=== PATIENT | male | born 1955 | race Two or more races ===

== ENCOUNTER 2018-03-27 10:07 | Emergency (ER) | payer SELFPAY ==
[2018-03-27] MEDS ORDERED: Diphtheria,Pertussis(Acell),Tetanus Vaccine 0.5 ML Syringe IM ONE (10:20)
--- NOTE | 2018-03-27 10:47 | EDM.PDOC ---
ED HPI GENERAL MEDICAL PROBLEM - General Chief Complaint: Laceration Stated Complaint: LEFT HAND CUT Time Seen by Provider: 03/27/18 10:11 Source of Information: Reports: Patient History Limitations: Reports: No Limitations - History of Present Illness INITIAL COMMENTS - FREE TEXT/NARRATIVE: HISTORY AND PHYSICAL: History of present illness: Patient is a 62-year-old male who presents to the emergency room today with complaints of a laceration to his left fifth finger. He states he was using a wrench to tighten a bolt when it slipped from his hand resulting in a 2 cm x 2 cm V-shaped laceration to the palmar surface of his left fifth finger. There is exposed tendon sheath, minimal bleeding at this time. He denies any numbness or tingling to the affected extremity, full sensation. No tendon involvement as he does have good flexion, extension and strength. He is unsure of his last tetanus. Review of systems: As per history of present illness and below otherwise all systems reviewed and negative. Past medical history: As per history of present illness and as reviewed below otherwise noncontributory. Surgical history: As per history of present illness and as reviewed below otherwise noncontributory. Social history: No reported history of drug or alcohol abuse. Family history: As per history of present illness and as reviewed below otherwise noncontributory. Physical exam: General: Well-developed and well-nourished 62-year-old male. Alert and oriented. Nontoxic appearing and in no acute distress. HEENT: Atraumatic, normocephalic, pupils equal and reactive bilaterally, negative for conjunctival pallor or scleral icterus, mucous membranes moist, throat clear, neck supple, nontender, trachea midline. No drooling or trismus noted. No meningeal signs Lungs: Clear to auscultation, breath sounds equal bilaterally, chest nontender. Heart: S1S2, regular rate and rhythm without overt murmur Abdomen: Soft, nondistended, nontender. Negative for masses or hepatosplenomegaly. Negative for costovertebral tenderness. Pelvis: Stable nontender. Genitourinary: Deferred. Rectal: Deferred. Skin: 2 cm x 2 cm V-shaped laceration to the palmar surface of his left fifth digit near the base of the finger. There is tendon sheath exposure. Does not appear to have any tendon or nerve involvement as he does have good flexion, extension and strength (pushing/pulling). Otherwise skin is intact, warm, dry. No lesions or rashes noted. Extremities: Moves all per self. See skin for details. Strong radial pulses. Cap refill less than 3 seconds. +CMS. He is negative for cords or calf pain. Neurovascular unremarkable. Neuro: Awake, alert, oriented. Cranial nerves II through XII unremarkable. Cerebellum unremarkable. Motor and sensory unremarkable throughout. Exam nonfocal. Notes: The lacerated area was anesthetized with 1% lidocaine, 3 mL. The area was thoroughly irrigated with wound wash (2 pressure wound wash bottles) and chlorhexidine. No foreign debris noted. Usual and customary procedures were used for wound closure. Nylon, #10 interrupted sutures. Patient tolerated well. Nonstick tube gauze dressing applied. Thorough education on what to monitor for was reviewed and discussed. Dr Brewster, The Hand Surgeon at [facility], was consulted on this case. I did thoroughly inform him of the patient's case. I will place the patient on Bactrim DS and have him follow up with the hand surgeon either himself or Dr. Bazan, before Monday. Diagnostics: None Therapeutics: Lidocaine, T.dap, ancef, wound care, nonstick dressing Prescription: Bactrim DS [place] Impression: Finger Laceration Plan: 1. Rest, ice, elevate the affected extremity as able. 2. Sutures to be removed in 7-10 days. Continue to monitor the area for signs of infection. Take your antibiotic as directed. 3. Tylenol and/or ibuprofen as needed for pain management. [place] for moderate to severe pain. This medication does cause drowsiness so do not take it while driving or needing to be functioning outside of the house. 4. I would like you to follow-up with the hand surgeon no later than Monday (10/2017). Dr. Manuela Bazan, Hand Surgeon, is located in [facility], please call her office to see if your able to schedule an appointment. Otherwise Dr. Brewster, hand surgeon at [facility], is aware of your case and is agreeable to seeing you in his office. When you call his clinic, please let them know you were seen in the emergency room in [place], and Dr Brewster has agreed to see you for an ER follow-up. His clinic phone number is [phone]. 5. Return to the ED as needed and as discussed. Definitive disposition and diagnosis as appropriate pending reevaluation and review of above. Onset: Today Duration: Minutes: Location: Reports: Upper Extremity, Left laceration to left hand Pain Score (Numeric/FACES): 6 - Related Data Allergies Allergy/AdvReac Type Severity Reaction Status Date / Time No Known Allergies Allergy Verified 03/27/18 10:19 Home Meds: Home Meds Acetaminophen/HYDROcodone [[place] 325-5 MG] 1 tab PO Q4H PRN #10 tablet 03/27/18 [Rx] Sulfamethoxazole/Trimethoprim [Bactrim Ds Tablet] 1 each PO BID 10 Days #20 tablet 03/27/18 [Rx] Past Medical History - Past Health History Medical/Surgical History: Denies Medical/Surgical History Social & Family History - Family History Family Medical History: Unobtainable - Tobacco Use Smoking Status *Q: Never Smoker Second Hand Smoke Exposure: No - Caffeine Use Caffeine Use: Reports: Soda - Recreational Drug Use Recreational Drug Use: No ED ROS GENERAL - Review of Systems Review Of Systems: ROS reveals no pertinent complaints other than HPI. ED EXAM, SKIN/RASH Exam: See Below (See dictation) ED SKIN PROCEDURES - Laceration/Wound Repair left 5th digit Lac/Wound length In cm: 4 (2x2) Appearance: Subcutaneous Distal NVT: Neuro & Vascular Intact, No Tendon Injury Anesthetic Type: Local Local Anesthesia - Lidocaine (Xylocaine): 1% Plain Local Anesthetic Volume: 3cc Skin Prep: Chlorhexidine (Hibiciens), Saline, Sterile Drape Saline Irrigation (cc's): 0 (2 wound wash bottles) Exploration/Debridement/Repair: Wound Explored, In a Bloodless Field, No Foreign Material Found Suture Size: 4-0 # of Sutures: 10 Suture Type: Nylon Drain Placement: No Sterile Dressing Applied: Provider Tetanus Status Addressed: Yes Complications: No Course - Vital Signs Last Recorded V/S: Last Vital Signs Temp 97.4 F 03/27/18 10:17 Pulse 63 03/27/18 10:17 Resp 16 03/27/18 10:17 BP 164/90 H 03/27/18 10:17 Pulse Ox 96 03/27/18 10:17 - Orders/Labs/Meds Orders: Active Orders 24 hr Category Date Time Status Communication Order [RC] STAT Care 03/27/18 11:25 Active Vaccines to be Administered [RC] PER UNIT ROUTINE Care 03/27/18 10:23 Active Meds: Medications Discontinued Medications Generic Name Dose Route Start Last Admin Trade Name Kevinq PRN Reason Stop Dose Admin Cefazolin Sodium 1 gm 03/27/18 10:54 03/27/18 11:49 Ancef IM 03/27/18 10:55 1 gm ONETIME ONE Administration Diphtheria/Tetanus/Acell Pertussis 0.5 ml 03/27/18 10:20 03/27/18 11:30 Adacel IM 03/27/18 10:21 0.5 ml .ONCE ONE Administration Lidocaine HCl 5 ml 03/27/18 10:20 03/27/18 11:31 Xylocaine-Mpf 1% INJECT 03/27/18 10:21 5 ml ONETIME ONE Administration Sterile Water 2.5 ml 03/27/18 11:34 03/27/18 11:52 Sterile Water For Injection INJECT 03/27/18 11:35 2.5 ml ONETIME ONE Administration Departure - Departure Time of Disposition: 12:00 Disposition: Home, Self-Care 01 Clinical Impression: Finger laceration - Discharge Information Prescriptions: Acetaminophen/HYDROcodone [[place] 325-5 MG] 1 tab PO Q4H PRN #10 tablet PRN Reason: Pain Sulfamethoxazole/Trimethoprim [Bactrim Ds Tablet] 1 each PO BID 10 Days #20 tablet Instructions: Laceration Care, Adult Referrals: PCP,None [Primary Care Provider] - Forms: ED Department Discharge Additional Instructions: The following information is given to patients seen in the emergency department who are being discharged to home. This information is to outline your options for follow-up care. We provide all patients seen in our emergency department with a follow-up referral. The need for follow-up, as well as the timing and circumstances, are variable depending upon the specifics of your emergency department visit. If you don't have a primary care physician on staff, we will provide you with a referral. We always advise you to contact your personal physician following an emergency department visit to inform them of the circumstance of the visit and for follow-up with them and/or the need for any referrals to a consulting specialist. The emergency department will also refer you to a specialist when appropriate. This referral assures that you have the opportunity for follow-up care with a specialist. All of these measure are taken in an effort to provide you with optimal care, which includes your follow-up. Under all circumstances we always encourage you to contact your private physician who remains a resource for coordinating your care. When calling for follow-up care, please make the office aware that this follow-up is from your recent emergency room visit. If for any reason you are refused follow-up, please contact the [facility] Emergency Department at and asked to speak to the emergency department charge nurse. [facility] Specialty Care - Plastic Surgery/ Hand Surgeon (Dr Manuela Bazan) Professional Building [address] [place] [address], [address] [place] [address] [facility] Hand Surgeon (Dr Brewster) [address] [place] [id number] 1. Rest, ice, elevate the affected extremity as able. 2. Sutures to be removed in 7-10 days. Continue to monitor the area for signs of infection. Take your antibiotic as directed. 3. Tylenol and/or ibuprofen as needed for pain management. [place] for moderate to severe pain. This medication does cause drowsiness so do not take it while driving or needing to be functioning outside of the house. 4. I would like you to follow-up with the hand surgeon no later than Monday (10/2017). Dr. Manuela Bazan, Hand Surgeon, is located in [facility], please call her office to see if your able to schedule an appointment. Otherwise Dr. Brewster, hand surgeon at [facility], is aware of your case and is agreeable to seeing you in his office. When you call his clinic, please let them know you were seen in the emergency room in [place], and Dr Brewster has agreed to see you for an ER follow-up. His clinic phone number is [phone]. 5. Return to the ED as needed and as discussed. - My Orders Last 24 Hours: My Active Orders 03/27/18 10:23 Vaccines to be Administered [RC] PER UNIT ROUTINE 03/27/18 11:25 Communication Order [RC] STAT - Assessment/Plan Last 24 Hours: My Active Orders 03/27/18 10:23 Vaccines to be Administered [RC] PER UNIT ROUTINE 03/27/18 11:25 Communication Order [RC] STAT
[2018-03-27] MEDS ORDERED: ceFAZolin 1 GM Vial IM ONE (10:54)
[2018-03-27] MEDS ORDERED: Water For Injection, Sterile 20 ML SDV INJECT ONE (11:34)
== END 2018-03-27 12:15 | disposition home or self-care (01) ==
LOC: MW.ED 10:07
DX: S61.217A Laceration without foreign body of left little finger without damage to nail, initial encounter (principal); Z23 Encounter for immunization; W23.1XXA Caught, crushed, jammed, or pinched between stationary objects, initial encounter
CPT/HCPCS: 12002; 90471; 90715; 96372; 99282; J0690